=== PATIENT | male | born 1990 | race Caucasian/White ===

== ENCOUNTER 2020-01-04 12:39 | Emergency (ER) | payer OTHER ==
--- NOTE | 2020-01-04 13:11 | ED Physician Documentation ---
PD HPI CHEST PAIN - Stated complaint Stated Complaint: LIGHT HEADED - Chief complaint Chief Complaint: Neuro - History obtained from History obtained from: Patient (29-year-old gentleman with recent diagnosis of diabetes in September, he had DKA but it is not clear that he is a type I diabetic. He actually has not been taking insulin for the last couple of weeks and his blood sugars have generally been in the low to mid 100s. He was in his usual state of health today, painting at home around 11 AM. Just doing some light work and he developed left-sided low substernal chest pressure radiating to the neck. There is no associated shortness of breath or nausea but does note he has had some difficulty breathing for some time. No pedal edema or calf pain. No recent travel. No fevers or cough. He is pain-free now. No history of heart troubles but he was having palpitations and had a work-up with a negative Holter monitor recently.) Review of Systems Ten Systems: 10 systems reviewed and negative Constitutional: reports: Reviewed and negative Nose: reports: Reviewed and negative Throat: reports: Reviewed and negative Cardiac: reports: Chest pain / pressure, Palpitations. denies: Pedal edema, Calf pain Respiratory: reports: Dyspnea PD ED PE NORMAL - Vitals Vital signs reviewed: Yes - General General: Alert and oriented X 3, No acute distress - HEENT HEENT: PERRL, EOMI - Neck Neck: Supple, no meningeal sign, No bony TTP - Cardiac Cardiac: RRR, No murmur - Respiratory Respiratory: No respiratory distress, Clear bilaterally - Abdomen Abdomen: Non tender - Derm Derm: Normal color, Warm and dry - Extremities Extremities: No edema, No calf tenderness / cord - Psych Psych: Normal mood, Normal affect Results - Vitals Vitals: Vital Signs - 24 hr 01/04/20 01/04/20 12:44 14:39 Temperature 37.0 C Heart Rate 95 83 Respiratory 16 12 Rate Blood Pressure 146/79 H 154/85 H O2 Saturation 100 98 Oxygen O2 Source Room air - EKG (time done) 1256 Rate: Rate (enter#) Rhythm: NSR (96), LAE [place]: Normal Intervals: Normal [place] QRS: Normal Ischemia: Non specific changes (Abnormal T with slight ST depression especially III/F. We will try to get previous EKG from [facility] for comparison.) Compare to prior EKG: Changed from prior EKG (EKG from [facility] dated 12 September of this year received and obtained. Compared to today he has scooped T waves inferiorly with mild ST depression. Now more of an inverted T wave in those leads.) - Labs Labs: Laboratory Tests 01/04/20 01/04/20 01/04/20 13:15 13:15 13:15 WBC 4.3 L RBC 4.52 L Hgb 14.5 Hct 41.5 L MCV 91.8 MCH 32.1 H MCHC 34.9 RDW 11.2 L Plt Count 169 MPV 10.8 Neut # (Auto) 2.3 Lymph # (Auto) 1.6 [place] # (Auto) 0.3 Eos # (Auto) 0.1 Baso # (Auto) 0.0 Absolute Nucleated RBC 0.00 Nucleated RBC % 0.0 D-Dimer Sodium 138 Potassium 3.3 L Chloride 99 L Carbon Dioxide 25 Anion Gap 14.0 H BUN 18 Creatinine 1.0 Estimated GFR (MDRD) 89 Glucose 191 H Calcium 9.9 Total Bilirubin 2.1 H AST 29 ALT 30 Alkaline Phosphatase 78 Troponin I High Sens < 2.3 L Total Protein 7.9 Albumin 5.2 Globulin 2.7 Albumin/Globulin Ratio 1.9 Lipase 43 01/04/20 13:15 WBC RBC Hgb Hct MCV MCH MCHC RDW Plt Count MPV Neut # (Auto) Lymph # (Auto) [place] # (Auto) Eos # (Auto) Baso # (Auto) Absolute Nucleated RBC Nucleated RBC % D-Dimer < 200.0 L Sodium Potassium Chloride Carbon Dioxide Anion Gap BUN Creatinine Estimated GFR (MDRD) Glucose Calcium Total Bilirubin AST ALT Alkaline Phosphatase Troponin I High Sens Total Protein Albumin Globulin Albumin/Globulin Ratio Lipase PD MEDICAL DECISION MAKING - ED course ED course: 29-year-old gentleman with recent diagnosis of diabetes presents with resolved atypical chest pain and mild EKG changes. His initial troponin was negative and he is pain-free in the department. Case discussed with Dr. Ann, on-call for Dr. Marie his soils analyst who recommends a second troponin at 4 PM and if no change referred to the office for stress testing. Departure - Departure Clinical Impression: Chest pain Qualifiers: Chest pain type: unspecified Qualified Code(s): R07.9 - Chest pain, unspecified Condition: Good Record reviewed to determine appropriate education?: Yes Instructions: ED Chest Pain Atypical Unkn Cause Comments: Please call Dr. Marie's office tomorrow, I consulted with his partner, Dr. Ann today. He would like you set up for stress testing. Return if you develop recurrent chest pain.
[2020-01-04 13:19] LABS: BASOPHILS % (AUTO) 0.5 %; EOSINOPHILS # (AUTO) 0.1 10^3/uL (0.0-0.7); EOSINOPHILS % (AUTO) 1.2 %; HGB - HEMOGLOBIN 14.5 g/dL (14.0-18.0); LYMPHOCYTES # (AUTO) 1.6 10^3/uL (1.5-3.5); LYMPHOCYTES % (AUTO) 36.1 %; MEAN CORPUSCULAR HEMOGLOBIN 32.1 pg (27.0-31.0); MEAN CORPUSCULAR HGB CONC 34.9 g/dL (32.0-36.0); MEAN CORPUSCULAR VOLUME 91.8 fL (80.0-94.0); MEAN PLATELET VOLUME 10.8 fL (7.4-11.4); MONOCYTES # (AUTO) 0.3 10^3/uL (0.0-1.0); MONOCYTES % (AUTO) 7.9 %; NEUTROPHILS # (AUTO) 2.3 10^3/uL (1.5-6.6); NEUTROPHILS % (AUTO) 54.1 %; PLT - PLATELET COUNT 169 10^3/uL (130-450); RED BLOOD COUNT 4.52 10^6/uL (4.70-6.10); RED CELL DISTRIBUTION WIDTH 11.2 % (12.0-15.0); WHITE BLOOD COUNT 4.3 x10^3/uL (4.8-10.8)
[2020-01-04] MEDS ORDERED: LORazepam 2 MG/ML VIAL IVP STA (13:28)
[2020-01-04 13:34] LABS: ALBUMIN 5.2 g/dL (3.2-5.5); ALBUMIN/GLOBULIN RATIO 1.9 (1.0-2.2); BILIRUBIN,TOTAL 2.1 mg/dL (0.2-1.0); CALCIUM 9.9 mg/dL (8.5-10.3); TOTAL PROTEIN 7.9 g/dL (6.7-8.2)
--- NOTE | 2020-01-04 14:17 | XRAY Report ---
Reason: chest pain Procedure Date: 01/04/2020 Accession Number: [id number] / [id number] Procedure: XR - Chest 1 View X-Ray CPT Code: 03864 Final Report FULL RESULT: EXAM: CHEST RADIOGRAPHY EXAM DATE: 01/04/2020 01:32 PM. CLINICAL HISTORY: Chest pain. COMPARISON: None. TECHNIQUE: 1 view. FINDINGS: Lungs/Pleura: No focal airspace opacity. No pleural effusion or pneumothorax. Mediastinum: Cardiomediastinal silhouette is within normal limits. Pulmonary vasculature is unremarkable Other: None. IMPRESSION: No acute cardiopulmonary abnormality. [facility]
[2020-01-04 17:16] VITALS: BP 161/84
== END 2020-01-04 17:13 | disposition home or self-care (01) ==
LOC: ED 12:39
DX: R07.9 Chest pain, unspecified (principal); E11.9 Type 2 diabetes mellitus without complications; Z79.4 Long term (current) use of insulin
CPT/HCPCS: 36415; 71045; 80053; 83690; 84484; 85025; 85379; 93005; 96374; 99283; 99284; J2060

== ENCOUNTER 2020-07-14 21:30 | Outpatient (CLI) | payer OTHER | END 2020-07-14 21:31 | disposition EMS.NT | LOC: EMS 21:30 | PROVIDERS: ATTEND Surgery | DX: E10.649 Type 1 diabetes mellitus with hypoglycemia without coma (principal) ==